=== PATIENT | male | born 1955 | race Caucasian/White ===

== ENCOUNTER 2018-08-30 06:27 | Day surgery (SDC) | payer MEDICAID ==
[~2018-08-30] VITALS: Ht 170.2 cm; Wt 68.0 kg
[2018-08-30] MEDS ORDERED: LACTATED RINGERS 1,000 ML IV SCH (07:30)
[2018-08-30 07:44] LABS: CLARITY URINE CLEAR (CLEAR); COLOR URINE YELLOW (YELLOW); KETONES URINE NEGATIVE (NEGATIVE); LEUKOCYTE ESTERASE URINE NEGATIVE (NEGATIVE); NITRITE URINE NEGATIVE (NEGATIVE); OCCULT BLOOD URINE NEGATIVE (NEGATIVE); PH URINE 6.5 (4.5-8.0); PROTEIN URINE NEGATIVE (NEGATIVE); SPECIFIC GRAVITY URINE 1.019 (1.005-1.030)
[2018-08-30 07:47] LABS: BASOPHILS % 0.2 % (0.0-2.0); EOSINOPHILS % 3.7 % (0.0-5.0); HEMATOCRIT. 42.5 % (42.0-52.0); HEMOGLOBIN. 14.5 g/dL (14.0-18.0); LYMPHOCYTES % 19.3 % (20.0-50.0); MEAN CORPUSCULAR HEMOGLOBIN 33.2 pg (28.0-32.0); MEAN CORPUSCULAR VOLUME 97.5 fL (80.0-94.0); MEAN PLATELET VOLUME 7.3 fl (7.4-10.4); NEUTROPHILS % 67.8 % (40.0-76.0); PLATELET 212 x1000/uL (130-400); RED BLOOD CELL COUNT 4.36 mill/uL (4.7-6.1); RED CELL DISTRIBUTION WIDTH 13.2 % (11.6-14.6)
[2018-08-30 07:49] LABS: CHLORIDE 106 mEq/L (98-107)
[2018-08-30 07:52] LABS: PARTIAL THROMBOPLASTIN TIME 33.1 sec (23.4-31.0); PROTHROMBIN TIME 10.1 sec (9.6-11.0)
[2018-08-30] MEDS ORDERED: HYDR25TA PO (08:23)
[2018-08-30] MEDS ORDERED: IBUP-2030 PO (08:23)
[2018-08-30] MEDS ORDERED: ATOR20TA65 PO (08:23)
[2018-08-30] MEDS ORDERED: AMLO10TA80 PO (08:23)
[2018-08-30] MEDS ORDERED: BUPIVACAINE HCL 0.5% (5MG/ML) 50ML ONE (12:54)
[2018-08-30] MEDS ORDERED: BUPIVACAINE/EPINEPH/PF 0.25%/0.0005 10ML ONE (12:59)
[2018-08-30] MEDS ORDERED: MORPHINE SULFATE/PF 1MG/ML 10ML AMP ONE (13:00)
[2018-08-30] MEDS ORDERED: EPINEPHRINE 1:1000 1 MG/ML AMP ONE (13:01)
[2018-08-30] MEDS ORDERED: MIDAZOLAM HCL 5 MG/5 ML VIAL ONE (13:14)
[2018-08-30] MEDS ORDERED: PROPOFOL 200MG/20ML VIAL IV ONE (13:14)
[2018-08-30] MEDS ORDERED: FENTANYL CITRATE/PF 50MCG/ML 2ML VIAL ONE (13:14)
[2018-08-30] MEDS ORDERED: LIDOCAINE HCL/PF 1% 10 MG/ML 5ML VIAL ONE (13:14)
[2018-08-30] MEDS ORDERED: ROCURONIUM BROMIDE 10MG/ML VIAL 5ML IV ONE (13:14)
[2018-08-30] MEDS ORDERED: MIDAZOLAM HCL 2 MG/2 ML VIAL ONE (13:15)
[2018-08-30] MEDS ORDERED: BUPIVACAINE HCL/PF 0.25% (2.5MG/ML) 10ML ONE (13:19)
[2018-08-30] MEDS ORDERED: GENTAMICIN SULF 40MG/ML 2ML VIAL ONE (13:19)
[2018-08-30] MEDS ORDERED: ONDANSETRON HCL 4MG/2ML INJ ONE (14:27)
[2018-08-30] MEDS ORDERED: METOCLOPRAMIDE HCL 10MG/2ML VIAL ONE (14:27)
[2018-08-30] MEDS ORDERED: CEFAZOLIN SODIUM 1000MG/VIAL ONE (14:29)
[2018-08-30] MEDS ORDERED: BUPIVACAINE HCL/EPINEPHRINE 0.5%/0.0005 30ML ONE (14:35)
[2018-08-30] MEDS ORDERED: MORPHINE SULFATE 4 MG/ML CPJ (NOT FOR IM USE) IV PRN (16:34)
[2018-08-30] MEDS ORDERED: HYDROMORPHONE HCL/PF 2MG/ML CPJ IV PRN (16:35)
[2018-08-30] MEDS ORDERED: MEPERIDINE HCL/PF 25MG/ML CPJ IV PRN (16:36)
[2018-08-30] MEDS ORDERED: ONDANSETRON HCL 4MG/2ML INJ IV PRN (16:36)
[2018-08-30] MEDS ORDERED: SODIUM CHLORIDE 0.9% 1,000 ML IV ONE (16:45)
[2018-08-30] MEDS ORDERED: HYDROCODONE/ACETAMINOPHEN 10/325MG TABLET PO PRN (16:45)
[2018-08-30 17:40] VITALS: BP 156/89
== END 2018-08-30 18:55 | disposition home or self-care (01) ==
LOC: OR 06:27
PROVIDERS: ATTEND Orthopaedic Surgery
DX: M75.111 Incomplete rotator cuff tear or rupture of right shoulder, not specified as traumatic (principal); M75.21 Bicipital tendinitis, right shoulder; M75.41 Impingement syndrome of right shoulder; S43.431A Superior glenoid labrum lesion of right shoulder, initial encounter; M19.011 Primary osteoarthritis, right shoulder; I10 Essential (primary) hypertension; Z79.899 Other long term (current) drug therapy; Z79.01 Long term (current) use of anticoagulants; X58.XXXA Exposure to other specified factors, initial encounter; Y93.89 Activity, other specified; Y92.89 Other specified places as the place of occurrence of the external cause; Y99.8 Other external cause status
CPT/HCPCS: 29823; 29824; 29826; 36415; 64415; 80048; 81003; 85025; 85610; 85730; 88304; 88311; J0171; J0690; J2250; J2274; J2405; J2704; J2765; J3010; J3490; A4565; J1580